=== PATIENT | female | born 1950 | race Caucasian/White ===

== ENCOUNTER → 2017-09-06 | Outpatient (CLI) | payer MEDICARE ==
[~2017-09-06] MED LIST: FENOFIBRATE145 MG PO; GLIMEPIRIDE2 MG PO; GLYBURIDE PO; HYDROCHLOROTHIA25 MG PO; IRBESARTAN150 MG PO; JANUVIA100 MG PO; LETROZOLE2.5 MG PO; METHIMAZOLE5 GM PO; MULTI VITAMIN; SIMVASTATIN; SIMVASTATIN20 MG PO; TRICOR; Z.0.BENICAR40 MG PO; Z.0.GLUCOPHAGE1000 M PO
--- NOTE | 2017-09-06 11:36 | Diagnostic Imaging Report ---
PROCEDURE: Frontal and lateral views of the chest. COMPARISON: Patients [facility], , CHEST SINGLE (NOT PORTABLE), 01/08/2017, 16:10. INDICATIONS: CHECK UP ON MALIGNANT NEOPLASM OF KIDNEY FINDINGS: Lines/tubes: None. Lungs: The lungs are well inflated and clear. There is no evidence of pneumonia or pulmonary edema. No pulmonary nodules. Pleura: There is no pleural effusion or pneumothorax. Heart and mediastinum: Cardiac silhouette is unremarkable. Pulmonary vasculature is normal. Tortuous aorta. Bones: No acute bony abnormality. No lytic or blastic lesions. IMPRESSION: 1. No acute cardiopulmonary disease. No evidence of metastatic disease in the thorax. Bashir Strauss M.D. Dictated by: Bashir Strauss M.D. on 09/06/2017 at 11:36 Electronically approved by: Bashir Strauss M.D. on 09/06/2017 at 11:36
--- NOTE | 2017-09-06 17:26 | Diagnostic Imaging Report ---
PROCEDURE:US RETROPERITONEAL ( KIDNEY ). COMPARISON:Patients [facility], CT, CT ABDOMEN \T\ PELVIS W/WO CONTRAST, 05/06/2009, 15:01. Patients [facility], CT, CT ABDOMEN/PELVIS WO, 06/10/2016, 15:06. INDICATIONS:MALIGNANT NEOPLASM OF LEFT KIDNEY TECHNIQUE: Crane-scale and color sonographic images of the bilateral kidneys and bladder where obtained in transverse and longitudinal planes. FINDINGS: RIGHT KIDNEY: 13.1 cm, cortex 1.5 cm Cysts: 4.6 x 4.1 x 4.2 cm partially exophytic cystic anechoic lesion in the mid lateral aspect, stable. Solid masses: None Stones: None Hydronephrosis: None Echogenicity: Mildly increased LEFT KIDNEY: 13.3 cm, cortex 1.8 cm Cysts: 3.5 x 2.1 x 2.4 cm anechoic lesion with echogenic focus, consistent with 2 mm calcification noted on prior CT, in the superomedial aspect (previously measured 2.6 x 2.5 x 2[address] dated 05/21/2016). Solid masses: None Stones: None Hydronephrosis: None Echogenicity: Increased Bladder: No focal lesions. Bilateral ureteral jets are identified. CONCLUSION: 1. Normal bilateral renal size. Bilateral increased renal cortical echogenicity, consistent with medical renal disease. No hydronephrosis or obstruction. 2. No sonographic evidence of residual or recurrent renal neoplasm. 3. Slight interval increase in size of mostly simple cystic lesion in the superomedial left kidney, which contains a peripheral stable 2 mm calcification since 2008. 4. Stable simple cyst in the mid lateral right kidney. Bashir Strauss M.D. Dictated by: Bashir Strauss M.D. on 09/06/2017 at 17:27 Electronically approved by: Bashir Strauss M.D. on 09/06/2017 at 17:27
== END ==
LOC: US 10:28
PROVIDERS: ATTEND Urology
DX: C64.2 Malignant neoplasm of left kidney, except renal pelvis (principal)
CPT/HCPCS: 71046; 76770

== ENCOUNTER 2018-06-29 03:47 | Emergency (ER) | payer MEDICARE, OTHER ==
[~2018-06-29] VITALS: Ht 172.7 cm; Wt 88.9 kg
--- OUTSIDE RECORDS SUMMARY | 2018-06-29 03:50 | XMS REPORT | Continuity of Care Document ---
Author Author [facility] Organization [facility] Address Unknown Phone Unavailable Care Team Providers Care Senior Infrastructure Architect Name Role Phone MD Zelda, Abundio HULL Unavailable Insurance Providers Payer name Policy type / Coverage type Policy ID Covered republican ID Policy Tucker UNITED HEALTHCARE - CHOICE PLUS (POS) [place] UNITED HEALTHCARE - CHO[place] PLUS (POS) UNITED HEALTHCARE - CHOICE PLUS (POS) UNITED HEALTHCARE - CHOICE PLUS (POS) UNITED HEALTHCARE - CHOICE PLUS (POS) UNITED HEALTHCARE - CHOICE PLUS (POS) Encounters Encounter Performer Location Date Office Visit Abundio Ndiaye MD [facility] 350 Nov 26, 2013 Problems Problem Effective Dates Problem Status DIABETES - TYPE II Active HYPERCHOLESTEROLEMIA Active HYPERTENSION - BENIGN ESSENTIAL Active HYPOTHYROIDISM Active BREAST CANCER November 15, 2013 Active Procedures Date Description Comments November 15, 2013 smoking status never smoker Nov 26, 2013 smoking status Never smoker Medications Medication Instructions Start Date Status BENICAR HCT TABS November 15, 2013 Active METFORMIN HCL 1000 MG TABS November 15, 2013 Active SIMVASTATIN 10 MG TABS November 15, 2013 Active JANUVIA 100 MG TABS November 15, 2013 Active LEVOXYL 50 November 15, 2013 Active FENOFIBRATE 145 MG TABS November 15, 2013 Active GLIMEPIRIDE 2 MG TABS November 15, 2013 Active Vital Signs Date Description Test Result November 15, 2013 height E&M - 8302-2 HEIGHT 68 in November 15, 2013 weight E&M - 3141-9 WEIGHT 185 lb November 15, 2013 temperature E&M TEMPERATURE 98.4 deg f November 15, 2013 blood pressure, systolic - 8480-6 BP SYSTOLIC 134 mm Hg November 15, 2013 blood pressure, diastolic - 8462-4 BP DIASTOLIC 74 mm Hg Nov 26, 2013 weight E&M - 3141-9 WEIGHT 180 lb Nov 26, 2013 temperature E&M TEMPERATURE 98.7 deg f Nov 26, 2013 pulse rate E&M - 8867-4 PULSE RATE 101 /min Nov 26, 2013 blood pressure, systolic - 8480-6 BP SYSTOLIC 104 mm Hg Nov 26, 2013 blood pressure, diastolic - 8462-4 BP DIASTOLIC 70 mm Hg
--- OUTSIDE RECORDS SUMMARY | 2018-06-29 03:50 | XMS REPORT | Summary of Care ---
Author Author [place], Yoly Nunn Unknown Address Unknown Phone Unavailable Care Team Providers Care Graduate Studies Dean Name Role Phone KEV Prince, KAYLA Unavailable Unavailable CLIVE Mckeon, PERLA Unavailable Unavailable LINDA Mckeon, RAMÍREZ Unavailable Unavailable CLIVE MCCLAIN [place], PERLA FLANAGAN Unavailable Unavailable Unavailable Unavailable Functional Status Name Dates Details Functional status health issues are not documented Status: Name Dates Details Cognitive status health issues are not documented Status: Problems Name Dates Details Anemia (285.9, D64.9) Status: Active Need for varicella vaccine (V05.4, Z23) Status: Active 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, 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 Breast cancer (174.9, C50.919) Status: Active Rectal bleeding (569.3, K62.5) Status: Active Paronychia of toe (681.11, L03.039) Status: Active Hypothyroidism (244.9, E03.9) Status: Active Thyroiditis (245.9, E06.9) Status: Active Pharyngitis (462, J02.9) Status: Active Ds DNA antibody positive (795.79, R76.8) Status: Active Acute pharyngitis (462, J02.9) Status: Active Acute tracheobronchitis (466.0, J20.9) Status: Active Arthralgia of both knees (719.46, M25.561) Status: Active Arthralgia of left hand (719.44, M25.542) Status: Active Arthralgia of right hand (719.44, M25.541) Status: Active Positive GLADYS (antinuclear antibody) (795.79, R76.8) Status: Active Use of anastrozole (Arimidex) (V07.52, Z79.811) Status: Active Primary osteoarthritis of both hands (715.14, M19.041) Status: Active Synovial cyst of right popliteal space (727.51, M71.21) Status: Active Fever (780.60, R50.9) Status: Active Persistent cough (786.2, R05) Status: Active Tracheobronchitis (490, J40) Status: Active BMI 30.0-30.9,adult (V85.30, Z68.30) Status: Active Colon cancer screening (V76.51, Z12.11) Status: Active 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, 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) Status: Active Hospital discharge follow-up (V67.59, Z09) Status: Active Elevated lipase (790.5, R74.8) Status: Active Abdominal pain, acute, right lower quadrant (789.03, R10.31) Status: Active Right-sided back pain (724.5, M54.9) Status: Active Hyperproteinemia (273.8, E88.09) Status: Active Hyperglobulinemia (273.8, R77.1) Status: Active Pain of right sacroiliac joint (724.6, M53.3) Status: Active Myofascial pain syndrome (729.1, M79.18) Status: Active Occipital neuritis (723.8, M54.81) Status: Active Lower back pain (724.2, M54.5) Status: Active Estrogen receptor positive (V86.0, Z17.0) Status: Active Allergic rhinosinusitis (477.9, J30.9) Status: Active Acute URI (465.9, J06.9) Status: Active Acute UTI (599.0, N39.0) Status: Active Encounter for mini-mental status examination Status: Active Essential hypertension, benign (401.1, I10) Status: Active Type 2 diabetes mellitus (250.00, E11.9) Status: Active 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, 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) Status: Active New onset of headaches after age 50 (784.0, R51) Status: Active Episodic lightheadedness (780.4, R42) Status: Active Diabetes mellitus, without long-term current use of insulin (250.00, E11.9) Status: Active Influenza vaccine needed (V04.81, Z23) Status: Active Diabetes mellitus with proteinuria (250.40, E11.29) Status: Active Essential (primary) hypertension (401.9, I10) Status: Active Encounter for diabetic foot exam (250.00, E11.9) Status: Active Type 2 diabetes mellitus with proteinuria (250.40, E11.29) Status: Active Mixed hyperlipidemia (272.2, E78.2) Status: Active Encounter for monitoring statin therapy (V58.83, Z51.81) Status: Active CKD (chronic kidney disease), stage III (585.3, N18.3) Status: Active Mixed hyperlipidemia (272.2, E78.2) Status: Active On potassium wasting diuretic therapy (V58.69, Z79.899) Status: Active Need for vaccination with 13-polyvalent pneumococcal conjugate vaccine (V03.82, Z23) Status: Active Depression screening (V79.0, Z13.31) Status: Active At low risk for fall (V49.89, Z91.81) Status: Active History of left breast cancer (V10.3, Z85.3) Status: Active At low risk for fall (V49.89, Z91.81) Status: Active Diverticulosis of colon (562.10, K57.30) Status: Active History of renal cell carcinoma (V10.52, Z85.528) Status: Active Hyperthyroidism (242.90, E05.90) Status: Active Diverticulitis, colon (562.11, K57.32) Status: Active Lower abdominal pain (789.09, R10.30) Status: Active Diarrhea (787.91, R19.7) Status: Active Medications Name Dates Details Fenofibrate 145 MG Oral Tablet TAKE 1 TABLET EVERY DAY Quantity: 90 CLIVE Sue.SHANNON De LunaNDA * Start : 14-Jun-2018 Active MetFORMIN HCl - 1000 MG Oral Tablet Take 1 tablet by mouth twice a day * Quantity: 180 Refills: 0 CLIVE Sue.PERLA De Luna * Start : 14-Jun-2018 Active Simvastatin 10 MG Oral Tablet TAKE 1 TABLET BY MOUTH ONCE DAILY * Quantity: 90 Refills: 1 CLIVE Sue.Annamarie, PERLA * Start : 21-May-2013 Active Glimepiride 2 MG Oral Tablet TAKE 1 TABLET IN THE MORNING AND 1 AND 1/2 IN THE EVENING * Quantity: 225 Refills: 1 CLIVE Sue.PERLA De Luna * Start : 27-Dec-2013 Active Januvia 100 MG Oral Tablet TAKE 1 TABLET EVERY DAY * Quantity: 90 Refills: 0 CLIVE Sue.PERLA De Luna * Start : 14-Jun-2018 Active Irbesartan-Hydrochlorothiazide 300-12.5 MG Oral Tablet TAKE 1 TABLET EVERY DAY * Quantity: 90 Refills: 0 CLIVE Sue.PERLA De Luna * Start : 14-Jun-2018 Active Caltrate 600+D Plus TABS TAKE 1 TABLET DAILY * Refills: 0 Active Ferrous Sulfate 325 (65 Fe) MG Oral Tablet TAKE 1 TABLET TWICE DAILY. * Refills: 0 Active Vitamin C 500 MG Oral Tablet Take 1/2 tablet twice a day * Refills: 0 Active MethIMAzole 5 MG Oral Tablet Take 1 tab PO daily * Quantity: 90 Refills: 0 LINDA RAMÍREZ Mckeon * Start : 30-Jan-2015 Active Letrozole 2.5 MG Oral Tablet TAKE 1 TABLET DAILY, started taking 10/03/2015 * Refills: 0 Active Centrum TABS * Refills: 0 Active Gabapentin 100 MG Oral Capsule TAKE 1-3 CAPSULES THREE TIMES DAILY * Quantity: 270 Refills: 0 PERLA DUFFY M.D. * Start : 13-Apr-2018 Active Accu-Chek FastClix Lancets USE TO CHECK BLOOD SUGAR ONCE DAILY * Quantity: 1 Refills: 0 PERLA DUFFY M.D. * Start : 26-Aug-2017 Active 102 Unit Box Accu-Chek SmartView In Vitro Strip CHECK GLUCOSE EVERY MORNING DIRECTED * Quantity: 100 Refills: 0 PERLA DUFFY M.D. * Start : 31-Mar-2018 Active Ciprofloxacin HCl - 500 MG Oral Tablet TAKE 1 TABLET EVERY 12 HOURS DAILY. * Quantity: 20 Refills: 0 KEV N.P., KAYLA * Start : 20-Apr-2018 Active Colestipol HCl - 1 GM Oral Tablet TAKE 1 TABLET BY MOUTH TWICE DAILY WITH FOOD NEEDED FOR DIARRHEA * Quantity: 180 Refills: 0 KEV N.P., KAYLA * Start : 21-Apr-2018 Active Allergies and Adverse Reactions Name Dates Details Penicillins (Allergy) Status: Denied Past Medical History Name Dates Details Influenza vaccine needed (V04.81, Z23) Status: Active Need for varicella vaccine (V05.4, Z23) Status: Active H/O renal cell carcinoma (V10.52, Z85.528) Status: Resolved History of Diabetes mellitus (250.00, E11.9) Status: Resolved History of diarrhea (V12.79, Z87.898) Status: Resolved History of Diverticula of intestine (562.10, K57.30) Status: Resolved History of essential hypertension (V12.59, Z86.79) Status: Resolved History of hiatal hernia (V12.79, Z87.19) Status: Resolved History of hyperlipidemia (V12.29, Z86.39) Status: Resolved History of hypothyroidism (V12.29, Z86.39) Status: Resolved History of Kidney Cancer (V10.52) Status: Resolved History of Tracheobronchitis (490, J40) Status: Resolved Procedures Procedure Dates Details [QLH] CBC (INCLUDES DIFF/PLT) Date: 20-Apr-2018 [QL] SED RATE BY MODIFIED WESTERGREN Date: 20-Apr-2018 [QL] CMP W/EGFR Date: 20-Apr-2018 History of Appendectomy Completed History of Tubal Ligation Completed History of Hysterectomy Completed History of Cholecystectomy Completed History of Kidney Surgery Completed History of Mastectomy Left Breast Completed Immunization Name Dates Details Pneumococcal polysaccharide vaccine, 23 valent on: 14-Apr-2009 Tdap on: 28-Oct-2009 Hepatitis A on: 28-Oct-2009 Hepatitis A on: 01-Sep-2011 Influenza on: 29-Feb-2012 Fluzone INJ Lot #: [id number] on: 23-Apr-2013 Zoster (Zostavax) Lot #: [id number] on: 23-Apr-2013 Pneumococcal polysaccharide vaccine, 23 valent Lot #: [id number] on: 25-Mar-2015 Influenza Lot #: [id number] on: 25-Mar-2015 Fluzone Quadrivalent 0.5 ML Intramuscular Suspension on: 20-Apr-2016 Fluzone High-Dose 0.5 ML Intramuscular Suspension Prefilled Syringe Lot #: [id number] on: 11-Mar-2017 Prevnar 13 Intramuscular Suspension Lot #: [id number] on: 13-Oct-2017 Fluzone High-Dose 0.5 ML Intramuscular Suspension Prefilled Syringe Lot #: [id number] on: 14-Mar-2018 Family History Name Dates Details Family history of Diabetes Mellitus (V18.0) Status: Active Family history of Hypertension (V17.49) Status: Active Family history of arthritis (V17.7, Z82.61) Status: Active Family history of osteoporosis (V17.81, Z82.62) Status: Active Name Dates Details Family history of Cancer Status: Active Family history of Diabetes Mellitus (V18.0) Status: Active Family history of Hypertension (V17.49) Status: Active Social History Name Dates Details - Status: Name Dates Details Former smoker Vital Signs Date Test Result Details No Known Vitals to report Results Date Description Value Details Results not documented Plan of Care Name Dates Details Planned Observations Planned Goals not documented Planned Encounters Appointment; RAMÍREZ MCKEON M.D. On: 22-Jun-2018 8:00 Interventions Provided Medication Changes* Fenofibrate 145 MG Oral Tablet - Renew * Irbesartan-Hydrochlorothiazide 300-12.5 MG Oral Tablet - Renew * Januvia 100 MG Oral Tablet - Renew * MetFORMIN HCl - 1000 MG Oral Tablet - Renew Instructions Name Dates Details Instructions not documented Encounters Appointment; PERLA DUFFY M.D. Encounter Diagnosis: Problem not documented On: 17-Jun-2016 10:45 Appointment; PERLA DUFFY M.D. Encounter Diagnosis: Problem not documented On: 02-Sep-2016 14:15 Appointment; RAMÍREZ MCKEON M.D. Encounter Diagnosis: Problem not documented On: 01-Nov-2016 11:30 Appointment; PERLA DUFFY M.D. Encounter Diagnosis: Problem not documented On: 19-Nov-2016 15:15 Appointment; ANDRES ROLLE M.D. Encounter Diagnosis: Problem not documented On: 19-Jan-2017 8:45 Appointment; PERLA DUFFY M.D. Encounter Diagnosis: Problem not documented On: 11-Mar-2017 13:45 Appointment; RAMÍREZ MCKEON M.D. Encounter Diagnosis: Problem not documented On: 07-Apr-2017 11:30 Appointment; RAMÍREZ MCKEON M.D. Encounter Diagnosis: Problem not documented On: 15-Jun-2017 9:30 Appointment; RAMÍREZ MCKEON M.D. Encounter Diagnosis: Problem not documented On: 14-Jul-2017 8:00 Appointment; PERLA DUFFY M.D. Encounter Diagnosis: Problem not documented On: 13-Oct-2017 14:45 Appointment; RAMÍREZ MCKEON M.D. Encounter Diagnosis: Problem not documented On: 31-Oct-2017 15:30 Appointment; RAMÍREZ MCKEON M.D. Encounter Diagnosis: Problem not documented On: 14-Mar-2018 8:00 Appointment; KAYLA ANGULO NP Encounter Diagnosis: Problem not documented On: 20-Apr-2018 12:30
--- OUTSIDE RECORDS SUMMARY | 2018-06-29 03:50 | XMS REPORT | Continuity of Care Document ---
Author Author [facility] Organization [facility] Address Unknown Phone Unavailable Care Team Providers Care Home Health Clinical Liaison Name Role Phone MD Zelda, Abundio HULL Unavailable Insurance Providers Payer name Policy type / Coverage type Policy ID Covered constitution party ID Policy Tucker UNITED HEALTHCARE - CHOICE PLUS [place]POS[place] UNITED HEALTHCARE - CHOICE PLUS (POS) UNITED HEALTHCARE - CHOICE PLUS (POS) UNITED HEALTHCARE - CHOICE PLUS (POS) UNITED HEALTHCARE - CHOICE PLUS (POS) Encounters Encounter Performer Location Date Lab Report Abundio Ndiaye MD [facility] [place] Nov 21, 2013 Problems Problem Effective Dates Problem Status DIABETES - TYPE II Active HYPERCHOLESTEROLEMIA Active HYPERTENSION - BENIGN ESSENTIAL Active HYPOTHYROIDISM Active BREAST CANCER November 15, 2013 Active Procedures Date Description Comments November 15, 2013 smoking status never smoker Medications Medication Instructions Start Date Status [...]
--- OUTSIDE RECORDS SUMMARY | 2018-06-29 03:50 | XMS REPORT | Continuity of Care Document ---
Author Author [facility] Organization [facility] Address Unknown Phone Unavailable Care Team Providers Care Nutter Up Name Role Phone MD Zelda, Abundio HULL Unavailable Insurance Providers Payer name Policy type / Coverage type Policy ID Covered alliance party ID Policy Tucker UNITED HEALTHCARE - [...] Location Date Office Visit Abundio Ndiaye MD [facility] General Surgery 350 Jan 09, 2014 Problems Problem Effective Dates Problem Status DIABETES - TYPE II Active HYPERCHOLESTEROLEMIA Active HYPERTENSION - BENIGN ESSENTIAL Active HYPOTHYROIDISM Active BREAST CANCER November 15, 2013 Active Procedures Date Description Comments November 15, 2013 smoking status never smoker Nov 26, 2013 smoking status Never smoker Nov 29, 2013 smoking status Never smoker Jan 09, 2014 smoking status Never smoker Medications Medication Instructions [...] Test Result November 15, 2013 height E&M HEIGHT 68 in November 15, 2013 weight E&M WEIGHT 185 lb November 15, 2013 temperature E&M TEMPERATURE 98.4 deg f November 15, 2013 blood pressure, systolic BP SYSTOLIC 134 mm Hg November 15, 2013 blood pressure, diastolic BP DIASTOLIC 74 mm Hg Nov 26, 2013 weight E&M WEIGHT 180 lb Nov 26, 2013 temperature E&M TEMPERATURE 98.7 deg f Nov 26, 2013 pulse rate E&M PULSE RATE 101 /min Nov 26, 2013 blood pressure, systolic BP SYSTOLIC 104 mm Hg Nov 26, 2013 blood pressure, diastolic BP DIASTOLIC 70 mm Hg Nov 29, 2013 weight E&M WEIGHT 182 lb Nov 29, 2013 temperature E&M TEMPERATURE 98.7 deg f Nov 29, 2013 pulse rate E&M PULSE RATE 89 /min Nov 29, 2013 blood pressure, systolic BP SYSTOLIC 112 mm Hg Nov 29, 2013 blood pressure, diastolic BP DIASTOLIC 74 mm Hg Jan 09, 2014 weight E&M WEIGHT 181 lb Jan 09, 2014 temperature E&M TEMPERATURE 98.1 deg f Jan 09, 2014 pulse rate E&M PULSE RATE 76 /min Jan 09, 2014 blood pressure, systolic BP SYSTOLIC 108 mm Hg Jan 09, 2014 blood pressure, diastolic BP DIASTOLIC 67 mm Hg
--- OUTSIDE RECORDS SUMMARY | 2018-06-29 03:50 | XMS REPORT | Continuity of Care Document ---
Author Author [facility] Organization [facility] Address Unknown Phone Unavailable Care Team Providers Care Supervisor Briar Shop Name Role Phone MD Zelda, Abundio HULL Unavailable Insurance Providers Payer name Policy type / Coverage type Policy ID Covered democrat ID Policy Tucker UNITED HEALTHCARE - CHOICE PLUS [place]POS) [place] UNITED HEALTHCARE - CHOICE [place] (POS) UNITED HEALTHCARE - CHOICE PLUS (POS) UNITED HEALTHCARE - CHOICE PLUS (POS) UNITED HEALTHCARE - CHOICE PLUS (POS) Encounters Encounter Performer Location Date Lab Report Abundio Ndiaye MD [facility] - [place] Nov 21, 2013 Problems Problem Effective Dates [...]
--- OUTSIDE RECORDS SUMMARY | 2018-06-29 03:50 | XMS REPORT | Continuity of Care Document ---
Author Author [facility] Organization [facility] Address Unknown Phone Unavailable Care Team Providers Care Sword Swallower Name Role Phone MD Zelda, Abundio HULL [...] Location Date Office Visit Abundio Ndiaye MD [facility] General Surgery 350 Nov 29, 2013 Problems Problem Effective Dates Problem Status DIABETES - TYPE II Active HYPERCHOLESTEROLEMIA Active HYPERTENSION - BENIGN ESSENTIAL Active HYPOTHYROIDISM Active BREAST CANCER November 15, 2013 Active Procedures Date Description Comments November 15, 2013 smoking status never smoker Nov 26, 2013 smoking status Never smoker Nov 29, 2013 smoking status Never smoker Medications Medication [...]
--- OUTSIDE RECORDS SUMMARY | 2018-06-29 03:50 | XMS REPORT | Continuity of Care Document ---
Author Author [facility] Organization [facility] Address Unknown Phone Unavailable Care Team Providers Care Motion Picture Equipment Supervisor Name Role Phone MD Zelda, Abundio HULL [...] Location Date Lab Report Abundio Ndiaye MD [facility] Dec 16, 2013 Problems Problem Effective Dates Problem Status [...]
--- OUTSIDE RECORDS SUMMARY | 2018-06-29 03:50 | XMS REPORT ---
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 Allergies, Adverse Reactions, Alerts This patient has no known allergies or adverse reactions. Medications This patient has no known medications. Results Test Description Test Time Test Comments Text Results Atomic Results Result Comments CHEST 2 VIEWS [place] [address] Patient Name: DMITRIY ENRIQUEZ MR #: [id number] : 1950 Age/Sex: 67/F Req #: [id number] Adm Physician: Ordered by: YOSELYN ARTEAGA MD Report #: [id number] Location: US Room/Bed: Procedure: [id number] DX/CHEST 2 VIEWS Exam Date: 09/06/17 Exam Time: 1020 REPORT STATUS: Signed PROCEDURE: Frontal and lateral views of the chest. COMPARISON: [facility], , CHEST SINGLE (NOT PORTABLE), 01/08/2017, 16:10. INDICATIONS: CHECK UP ON MALIGNANT NEOPLASM OF KIDNEY FINDINGS: Lines/tubes: None. Lungs: The lungs are well inflated and clear. There is no evidence of pneumonia or pulmonary edema. No pulmonary nodules. Pleura: There is no pleural effusion or pneumothorax. Heart and mediastinum: Cardiac silhouette is unremarkable. Pulmonary vasculature is normal. Tortuous aorta. Bones: No acute bony abnormality. No lytic or blastic lesions. IMPRESSION: 1. No acute cardiopulmonary disease. No evidence of metastatic disease in the thorax. Arcelia Strauss M.D. Dictated by: Arcelia Strauss M.D. on 09/06/2017 at 11:36 Electronically approved by: Arcelia Strauss M.D. on 09/06/2017 at 11:36 Dictated By: ARCELIA STRAUSS MD 1136 Transcribed By: ANNA on 09/06/17 1136 COPY TO: YOSELYN ARTEAGA MD US RENAL RETROPERITONEAL COMP [place] [address] Patient Name: DMITRIY ENRIQUEZ MR #: [id number] : 1950 Age/Sex: 67/F Req #: [id number] Adm Physician: Ordered by: YOSELYN ARTEAGA MD Report #: [id number] Location: Room/Bed: Procedure: [id number] US/US RENAL RETROPERITONEAL COMP Exam Date: 09/06/17 Exam Time: 1102 REPORT STATUS: Signed PROCEDURE: US RETROPERITONEAL ( KIDNEY ). COMPARISON: [facility], CT, CT ABDOMEN T PELVIS W/WO CONTRAST, 05/06/2009, 15:01. [facility], CT, CT ABDOMEN/PELVIS WO, 06/10/2016, 15:06. INDICATIONS: MALIGNANT NEOPLASM OF LEFT KIDNEY TECHNIQUE: Crane-scale and color sonographic images of the bilateral kidneys and bladder where obtained in transverse and longitudinal planes. FINDINGS: RIGHT KIDNEY: 13.1 cm, cortex 1.5 cm Cysts: 4.6 x 4.1 x 4.2 cm partially exophytic cystic anechoic lesion in the mid lateral aspect, stable. Solid masses: None Stones: None Hydronephrosis: None Echogenicity: Mildly increased LEFT KIDNEY: 13.3 cm, cortex 1.8 cm Cysts: 3.5 x 2.1 x 2.4 cm anechoic lesion with echogenic focus, consistent with 2 mm calcification noted on prior CT, in the superomedial aspect (previously measured 2.6 x 2.5 x 2[address] dated 05/21/2016). Solid masses: None Stones: None Hydronephrosis: None Echogenicity: Increased Bladder: No focal lesions. Bilateral ureteral jets are identified. CONCLUSION: 1. Normal bilateral renal size. Bilateral increased renal cortical echogenicity, consistent with medical renal disease. No hydronephrosis or obstruction. 2. No sonographic evidence of residual or recurrent renal neoplasm. 3. Slight interval increase in size of mostly simple cystic lesion in the superomedial left kidney, which contains a peripheral stable 2 mm calcification since 2008. 4. Stable simple cyst in the mid lateral right kidney. Arcelia Strauss M.D. Dictated by: Arcelia Strauss M.D. on 09/06/2017 at 17:27 Electronically approved by: Arcelia Strauss M.D. on 09/06/2017 at 17:27 Dictated By: ARCELIA STRAUSS MD 26 Transcribed By: ANNA on 09/06/171726 COPY TO: YOSELYN ARTEAGA MD
--- OUTSIDE RECORDS SUMMARY | 2018-06-29 03:50 | XMS REPORT | Continuity of Care Document ---
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
[2018-06-29 04:28] LABS: BASOPHILS # (AUTO) 0.1 (0.0-0.1); BASOPHILS % 0.5 % (0.0-1.0); EOSINOPHILS # (AUTO) 0.3 (0.0-0.4); EOSINOPHILS % 2.7 % (0.0-6.0); HEMATOCRIT 32.4 % (34.2-44.1); HEMOGLOBIN 11.4 g/dL (12.0-16.0); LYMPHOCYTES % 32.3 % (18.0-39.1); MEAN CORPUSCULAR HEMOGLOBIN 31.8 pg (28-32); MEAN CORPUSCULAR HGB CONC 35.2 g/dL (31-35); MEAN CORPUSCULAR VOLUME 90.5 fL (81-99); MONOCYTES # (AUTO) 0.8 (0.2-0.8); MONOCYTES % 8.4 % (4.4-11.3); NEUTROPHILS # (AUTO) 5.1 (2.1-6.9); NEUTROPHILS % 55.9 % (38.7-80.0); PLATELET COUNT 227 x10e3/uL (140-360); RED BLOOD COUNT 3.58 x10e6/uL (3.6-5.1); RED CELL DISTRIBUTION WIDTH 12.4 % (11.7-14.4)
[2018-06-29 04:32] LABS: INFLUENZAE A&B ANTIGEN (RAPID) NEGATIVE (NEGATIVE); STREPTOCOCCUS GRP A ANTIGEN NEGATIVE (NEGATIVE)
[2018-06-29 04:45] LABS: ALBUMIN 3.7 g/dL (3.5-5.0); ALBUMIN/GLOBULIN RATIO 0.9 (0.8-2.0); ANION GAP 16.6 mmol/L (8-16); CALCIUM 9.8 mg/dL (8.4-10.2); CREATININE, SERUM 1.13 mg/dL (0.57-1.11); POTASSIUM 3.6 mmol/L (3.5-5.1)
--- NOTE | 2018-06-29 04:54 | Diagnostic Imaging Report ---
CHEST 2 VIEWS, Technique: CHEST 2 VIEWS Comparison: 09/06/2017 Clinical history: Cough, chest pain DISCUSSION: Mild right basilar opacity, which may be within the right middle lobe. Otherwise stable heart, mediastinum, lungs, and pleural spaces. Prominent thoracic aorta, unchanged. IMPRESSION: Right lung pneumonia. Recommend 6-8 week follow-up to document resolution. Signed by: Dr Nanette Avilez MD on 06/29/2018 4:50 AM
[2018-06-29] MEDS ORDERED: CEFTRIAXONE SOD 1 GM/NS 50 ML 50 ML IV ONE (05:00)
[2018-06-29 05:17] VITALS: BP 143/71
== END 2018-06-29 05:37 | disposition home or self-care (01) ==
LOC: ER 03:47
DX: R50.9 Fever, unspecified (principal); R05 Cough; J15.9 Unspecified bacterial pneumonia; I10 Essential (primary) hypertension; E11.9 Type 2 diabetes mellitus without complications; E03.9 Hypothyroidism, unspecified; E78.5 Hyperlipidemia, unspecified; Z85.3 Personal history of malignant neoplasm of breast; Z85.528 Personal history of other malignant neoplasm of kidney
CPT/HCPCS: 36415; 71046; 80053; 83518; 85025; 87070; 87400; 99283; J0696

== ENCOUNTER → 2018-11-20 | Outpatient (CLI) | payer MEDICARE ==
--- NOTE | 2018-11-20 13:28 | Diagnostic Imaging Report ---
EXAMINATION: CHEST 2 VIEWS INDICATION: Left renal malignancy. COMPARISON: Chest radiograph 06/29/2018. FINDINGS: TUBES and LINES: None. LUNGS: Lungs are well inflated. Interval resolution of patchy opacity in the right lower lung. There is no evidence of pneumonia or pulmonary edema. PLEURA: No pleural effusion or pneumothorax. HEART AND MEDIASTINUM: The cardiomediastinal silhouette is unremarkable. BONES AND SOFT TISSUES: No acute osseous abnormality. UPPER ABDOMEN: No free air under the diaphragm. IMPRESSION: No acute radiographic abnormality. Interval resolution of patchy opacity in the right lower lung. Signed by: Dr. Memo Barajas MD on 11/20/2018 1:25 PM
--- NOTE | 2018-11-20 13:39 | Diagnostic Imaging Report ---
EXAM: Renal Ultrasound INDICATION: Left renal malignancy. COMPARISON: Renal ultrasound 09/06/2017. TECHNIQUE: Transverse and longitudinal images of the kidneys and bladder were obtained. FINDINGS: Right Kidney: Length: Measures 13.3 x 5.9 x 6.0 cm Appearance: Slightly increased cortical echogenicity. Collecting system: No hydronephrosis Stones: None Cyst/Mass: No evidence of solid mass. There is a partially exophytic simple appearing anechoic cyst in the midpole, measuring up to 4.6 x 3.9 x 4.0 cm, previously 4.6 x 4.1 x 4.2 cm. Left Kidney: Length: Measures 12.8 x 5.3 x 4.9 cm Appearance: Slightly increased cortical echogenicity. Collecting system: No hydronephrosis Stones: None Cyst/Mass: No evidence of solid mass. Similar appearance of anechoic cyst in the midpole with associated peripheral echogenicity, consistent with calcification. The cyst measures up to 2.6 x 2.1 x 2.7 cm, previously 3.5 x 2.1 x 2.4 cm. Bladder: Unremarkable in appearance. Bilateral ureteral jets are present. IMPRESSION: No sonographic evidence of solid renal mass. Similar appearance of simple right mid pole cyst and minimally complex left mid pole cyst. Mildly increased bilateral renal cortical echogenicity, consistent with medical renal disease. Signed by: Dr. Memo Barajas MD on 11/20/2018 1:36 PM
== END ==
LOC: US 11:57
PROVIDERS: ATTEND Urology
DX: C64.2 Malignant neoplasm of left kidney, except renal pelvis (principal)
CPT/HCPCS: 71046; 76770

== ENCOUNTER → 2019-06-07 | Outpatient (CLI) | payer MEDICARE ==
--- NOTE | 2019-06-07 08:22 | Diagnostic Imaging Report ---
EXAMINATION: PA and lateral views of the chest. COMPARISON: 11/20/2018 CLINICAL HISTORY: Left renal malignancy DISCUSSION: The lungs are well-inflated and without focal consolidation, pleural effusion, or pneumothorax. No gross mass lesion or suspicious nodule. Stable cardiomediastinal contour with tortuous thoracic aorta. Normal heart size without overt pulmonary edema. No acute osseous abnormality. Left upper abdominal surgical clips partially visualized related to prior left nephrectomy. IMPRESSION: No acute cardiopulmonary abnormalities. Stable appearance of the chest relative to 11/20/2018. Signed by: Dr. Ean Hearn M.D. on 06/07/2019 8:19 AM
--- NOTE | 2019-06-07 08:51 | Diagnostic Imaging Report ---
EXAM: Renal Ultrasound INDICATION: ^[id number] ^[id number] ^MAYELA NEOP OF LT KIDNEY COMPARISON: Renal ultrasound 11/20/2018 TECHNIQUE: Transverse and longitudinal images of the kidneys and bladder were obtained. FINDINGS: Right Kidney: Length: 13.8 cm Appearance: Increased echogenicity. Collecting system: No hydronephrosis Stones: None Cyst/Mass: Mid pole simple cyst measures 4.5 x 4.5 x 4.5 cm. Left Kidney: Length: 11.6 cm Appearance: Increased echogenicity. Collecting system: Minimal hydronephrosis Stones: None Cyst/Mass: Upper pole simple cyst measures 2.9 x 2.4 x 2.9 cm. Bladder: No mass or calculi. Bilateral ureteral jets visualized. Prevoid volume estimate of 89 cc. IMPRESSION: Minimal left hydronephrosis. No solid mass lesions or renal calculi. Stable bilateral renal cysts as above. Increased bilateral renal parenchymal echogenicity, compatible with medical renal disease. Signed by: Yessy Campa MD on 06/07/2019 8:48 AM
== END ==
LOC: US 06:54
PROVIDERS: ATTEND Urology
DX: C64.2 Malignant neoplasm of left kidney, except renal pelvis (principal)
CPT/HCPCS: 71046; 76770

== ENCOUNTER → 2019-12-31 | Outpatient (CLI) | payer MEDICARE ==
--- NOTE | 2019-12-31 08:53 | Diagnostic Imaging Report ---
EXAMINATION: CHEST 2 VIEWS INDICATION: Renal malignancy COMPARISON: None FINDINGS: LINES/TUBES:None LUNGS:The lungs are well-inflated. Mild biapical pleural parenchymal thickening/scarring. No focal consolidation or pulmonary edema. PLEURA:No pleural effusion or pneumothorax. MEDIASTINUM:The cardiomediastinal silhouette appears normal in size and shape. BONES/SOFT TISSUES:No acute osseous injury. ABDOMEN:No free air under the diaphragm. IMPRESSION: No focal pneumonia or pulmonary edema. No radiographically apparent pulmonary nodules. Signed by: Yessy Campa MD on 12/31/2019 8:50 AM
--- NOTE | 2019-12-31 08:58 | Diagnostic Imaging Report ---
EXAM: Renal Ultrasound INDICATION: ^[id number] ^[id number] ^MALIG NEOP OF LT KIDNEY COMPARISON: Renal ultrasound 06/07/2019 TECHNIQUE: Transverse and longitudinal images of the kidneys and bladder were obtained. FINDINGS: Right Kidney: Length: 13.4 cm Appearance: Normal echogenicity. Collecting system: No hydronephrosis Stones: None Cyst/Mass: Dominant right lateral midpole anechoic simple cyst measures 4.6 x 4.6 x 5.0 cm. Left Kidney: Length: 13.0 cm Appearance: Normal echogenicity. Collecting system: No hydronephrosis Stones: None Cyst/Mass: Left mid pole anechoic simple cyst measures 2.3 x 1.8 x 2.7 cm. Bladder: Decompressed bladder. IMPRESSION: No hydronephrosis or renal calculi. Bilateral renal cysts, not significantly changed compared to 06/07/2019. Signed by: Yessy Campa MD on 12/31/2019 8:55 AM
== END ==
LOC: US 07:18
PROVIDERS: ATTEND Urology
DX: C64.2 Malignant neoplasm of left kidney, except renal pelvis (principal)
CPT/HCPCS: 71046; 76770

== ENCOUNTER → 2020-06-30 | Outpatient (CLI) | payer MEDICARE | LOC: US 09:19 | PROVIDERS: ATTEND Urology | DX: C64.2 Malignant neoplasm of left kidney, except renal pelvis (principal) | CPT/HCPCS: 71046; 76770 ==

== ENCOUNTER → 2021-06-18 | Outpatient (CLI) | payer MEDICARE | LOC: US 07:56 | PROVIDERS: ATTEND Urology | DX: C64.2 Malignant neoplasm of left kidney, except renal pelvis (principal) | CPT/HCPCS: 71046; 76770 ==

== ENCOUNTER → 2021-11-05 | Outpatient (CLI) | payer MEDICARE | LOC: US 06:35 | PROVIDERS: ATTEND Urology | DX: C64.2 Malignant neoplasm of left kidney, except renal pelvis (principal) | CPT/HCPCS: 71046; 76770 ==

== ENCOUNTER → 2021-12-03 | Outpatient (CLI) | payer MEDICARE ==
[~2021-12-03] MED LIST changes: +IOPAMIDOL 370 MG/ML 100 ML INFUS..BTL INJ ONE
== END ==
LOC: CT 06:44
PROVIDERS: ATTEND Urology
DX: N20.0 Calculus of kidney (principal)
CPT/HCPCS: 74176; Q9967

== ENCOUNTER 2021-12-13 13:24 | Inpatient (IN) | payer MEDICARE ==
[~2021-12-13] VITALS: Ht 172.7 cm; Wt 85.8 kg
[~2021-12-13 13:24] MED LIST changes: -IOPAMIDOL 370 MG/ML 100 ML INFUS..BTL INJ ONE; -MULTI VITAMIN; +MULTI VITAMIN PO
[2021-12-13 14:35] LABS: BASOPHILS # (AUTO) 0.1 (0.0-0.1); BASOPHILS % 0.3 % (0.0-1.0); EOSINOPHILS % 0.1 % (0.0-6.0); HEMOGLOBIN 11.9 g/dL (12.0-16.0); LYMPHOCYTES # (AUTO) 2.5 (1.0-3.2); LYMPHOCYTES % 14.1 % (18.0-39.1); MEAN CORPUSCULAR HEMOGLOBIN 32.4 pg (28-32); MEAN CORPUSCULAR HGB CONC 33.1 g/dL (31-35); MEAN CORPUSCULAR VOLUME 98.1 fL (81-99); MONOCYTES # (AUTO) 0.6 (0.2-0.8); MONOCYTES % 3.6 % (4.4-11.3); NEUTROPHILS # (AUTO) 14.5 (2.1-6.9); NEUTROPHILS % 81.6 % (38.7-80.0); PLATELET COUNT 278 x10e3/uL (140-360); RED BLOOD COUNT 3.67 x10e6/uL (3.6-5.1); RED CELL DISTRIBUTION WIDTH 12.1 % (11.7-14.4)
[2021-12-13 14:41] LABS: CLARITY,URINE SL CLOUDY (CLEAR); COLOR,URINE YELLOW (YELLOW); LEUKOCYTE ESTERASE ,URINE SMALL (NEGATIVE); NITRITE,URINE POSITIVE (NEGATIVE)
[2021-12-13 14:42] LABS: KETONES,URINE NEGATIVE (NEGATIVE); PROTEIN,URINE DIPSTICK 2+ (NEGATIVE); URINE UROBILINOGEN 0.2 mg/dL (0.2 - 1)
[2021-12-13 14:49] LABS: BACTERIA,URINE MANY /HPF; EPITHELIAL CELLS,URINE RARE /LPF; INR 0.97; PROTHROMBIN TIME 13.8 seconds (11.9-14.5); WBC,URINE (MAN) >50 /HPF (0-5)
[2021-12-13 14:50] LABS: PARTIAL THROMBOPLASTIN TIME 32.3 seconds (23.8-35.5)
[2021-12-13 14:56] LABS: ALBUMIN 4.1 g/dL (3.5-5.0); ALBUMIN/GLOBULIN RATIO 0.8 (0.8-2.0); ANION GAP 16.3 mmol/L (8-16); CALCIUM 9.7 mg/dL (8.4-10.2); CREATININE, SERUM 2.05 mg/dL (0.57-1.11); POTASSIUM 5.3 mmol/L (3.5-5.1)
[2021-12-13] MEDS ORDERED: SODIUM CHLORIDE 0.9% 1000ML 1,000 ML IV STA (16:03)
[2021-12-13] MEDS ORDERED: DEXTROSE 50% SYRINGE 50 ML IV PRN (16:45)
[2021-12-13] MEDS ORDERED: ONDANSETRON HCL INJ 2MG/ML 2ML 2 MG/ML VIAL IV PRN ×2 (16:45→20:15)
[2021-12-13] MEDS ORDERED: Morphine 2mg Syringe 2 MG/ML SYR IV PRN (16:45)
[2021-12-13 19:00] VITALS: BP 116/75
[2021-12-13] MEDS ORDERED: SIMVASTATIN5 MG PO (19:51)
[2021-12-13] MEDS ORDERED: TRADJENTA5 MG PO (19:51)
[2021-12-13] MEDS ORDERED: SYNTHROID25 MCG PO (19:51)
[2021-12-13] MEDS ORDERED: SPIRONOLACTONE25 MG PO (19:51)
[2021-12-13] MEDS ORDERED: IRBESARTAN300 MG PO (19:51)
[2021-12-13] MEDS ORDERED: METFORMIN HCL500 M1 PO (19:51)
[2021-12-13] MEDS ORDERED: GLIMEPIRIDE2 MG PO (19:53)
[2021-12-13] MEDS ORDERED: vitamin k2 PO (19:56)
[2021-12-13] MEDS ORDERED: METFORMIN HCL500 MG PO (19:56)
[2021-12-13] MEDS ORDERED: PROBIOTIC & AC1 EACH PO (19:56)
[2021-12-13 20:00] VITALS: BP 116/75
[2021-12-13] MEDS ORDERED: ACETAMINOPHEN 325 MG TAB PO PRN (20:15)
[2021-12-13] MEDS ORDERED: HYDRALAZINE HCL 20 MG/ML VIAL IV PRN (20:15)
[2021-12-13] MEDS ORDERED: POLYETHYLENE GLYCOL 3350 17 GM PACK PO PRN (20:15)
[2021-12-13] MEDS ORDERED: SOD POLYSTYRENE SULFONATE SUSP 15 GM/60 ML BTL PO ONE (20:30)
[2021-12-13] MEDS: DOCUSATE SODIUM 100 MG CAP PO SCH (20:59)
[2021-12-13] MEDS: SODIUM CHLORIDE 0.9% 1000ML 1,000 ML IV SCH (20:59)
[2021-12-13] MEDS: INSULIN LISPRO 100 UNIT/1 ML 3ML VIAL SQ SCH (21:00)
[2021-12-13] MEDS: SIMVASTATIN 20 MG TAB PO SCH (21:01)
[2021-12-14] VITALS (8 sets, daily range): BP systolic 118–143; BP diastolic 75–89
[2021-12-14] MEDS: LEVOTHYROXINE SODIUM 25 MCG TABLET PO SCH ×2 (06:00→06:12)
[2021-12-14 06:29] LABS: BASOPHILS % 0.4 % (0.0-1.0); EOSINOPHILS # (AUTO) 0.1 (0.0-0.4); EOSINOPHILS % 1.4 % (0.0-6.0); HEMATOCRIT 31.8 % (34.2-44.1); HEMOGLOBIN 10.4 g/dL (12.0-16.0); LYMPHOCYTES # (AUTO) 3.2 (1.0-3.2); MEAN CORPUSCULAR HEMOGLOBIN 32.7 pg (28-32); MEAN CORPUSCULAR HGB CONC 32.7 g/dL (31-35); MONOCYTES # (AUTO) 0.5 (0.2-0.8); MONOCYTES % 5.4 % (4.4-11.3); NEUTROPHILS # (AUTO) 4.6 (2.1-6.9); NEUTROPHILS % 54.3 % (38.7-80.0); PLATELET COUNT 194 x10e3/uL (140-360); RED BLOOD COUNT 3.18 x10e6/uL (3.6-5.1); RED CELL DISTRIBUTION WIDTH 12.2 % (11.7-14.4)
[2021-12-14 06:55] LABS: ALBUMIN 3.4 g/dL (3.5-5.0); ANION GAP 12.5 mmol/L (8-16); CALCIUM 8.2 mg/dL (8.4-10.2); CREATININE, SERUM 1.65 mg/dL (0.57-1.11); POTASSIUM 4.5 mmol/L (3.5-5.1)
[2021-12-14 06:58] LABS: CHOL/HDL RATIO 2.8 (3.0-3.6); MAGNESIUM 1.5 MG/DL (1.3-2.1); PHOSPHORUS 3.8 MG/DL (2.3-4.7)
[2021-12-14 07:19] LABS: THYROID STIMULATING HORMONE 0.963 uIU/mL (0.350-4.940)
[2021-12-14] MEDS: INSULIN LISPRO 100 UNIT/1 ML 3ML VIAL SQ SCH ×4 (07:30→20:51)
[2021-12-14] MEDS: LACTOBACILLUS ACIDOPHILUS CAPSULE PO SCH (08:34)
[2021-12-14] MEDS: DOCUSATE SODIUM 100 MG CAP PO SCH ×2 (08:35→16:51)
[2021-12-14] MEDS: FAMOTIDINE 20 MG/2 ML VIAL IV SCH (08:35)
[2021-12-14] MEDS: IRBESARTAN 150 MG TAB PO SCH (08:42)
[2021-12-14] MEDS: SODIUM CHLORIDE 0.9% 1000ML 1,000 ML IV SCH ×2 (08:43→16:51)
[2021-12-14] MEDS ORDERED: FAMOTIDINE 20 MG/2 ML VIAL IV SCH (09:00)
[2021-12-14] MEDS: SIMVASTATIN 20 MG TAB PO SCH (20:43)
[2021-12-15] VITALS (8 sets, daily range): BP systolic 125–157; BP diastolic 69–88
[2021-12-15] MEDS: LEVOTHYROXINE SODIUM 25 MCG TABLET PO SCH (05:09)
[2021-12-15 05:42] LABS: ANION GAP 12.1 mmol/L (8-16); CALCIUM 8.4 mg/dL (8.4-10.2); CREATININE, SERUM 1.61 mg/dL (0.57-1.11); POTASSIUM 4.1 mmol/L (3.5-5.1)
[2021-12-15] MEDS: INSULIN LISPRO 100 UNIT/1 ML 3ML VIAL SQ SCH ×4 (07:30→20:21)
[2021-12-15] MEDS: IRBESARTAN 150 MG TAB PO SCH (08:51)
[2021-12-15] MEDS: FAMOTIDINE 20 MG/2 ML VIAL IV SCH (08:51)
[2021-12-15] MEDS: DOCUSATE SODIUM 100 MG CAP PO SCH ×2 (08:52→16:37)
[2021-12-15] MEDS: LACTOBACILLUS ACIDOPHILUS CAPSULE PO SCH (08:52)
[2021-12-15] MEDS ORDERED: SODIUM CHLORIDE 0.9% 250ML 250 ML ONE (14:45)
[2021-12-15] MEDS: SODIUM CHLORIDE 0.9% 1000ML 1,000 ML IV SCH (16:56)
[2021-12-15] MEDS: SIMVASTATIN 20 MG TAB PO SCH (20:18)
[2021-12-16] VITALS (7 sets, daily range): BP systolic 140–166; BP diastolic 80–95
[2021-12-16] MEDS: LEVOTHYROXINE SODIUM 25 MCG TABLET PO SCH (05:23)
[2021-12-16] MEDS: SODIUM CHLORIDE 0.9% 1000ML 1,000 ML IV SCH (05:39)
[2021-12-16 07:06] LABS: BASOPHILS % 0.4 % (0.0-1.0); EOSINOPHILS # (AUTO) 0.1 (0.0-0.4); EOSINOPHILS % 1.1 % (0.0-6.0); HEMATOCRIT 31.4 % (34.2-44.1); HEMOGLOBIN 10.5 g/dL (12.0-16.0); LYMPHOCYTES # (AUTO) 2.5 (1.0-3.2); LYMPHOCYTES % 30.5 % (18.0-39.1); MEAN CORPUSCULAR HEMOGLOBIN 32.2 pg (28-32); MEAN CORPUSCULAR HGB CONC 33.4 g/dL (31-35); MEAN CORPUSCULAR VOLUME 96.3 fL (81-99); MONOCYTES # (AUTO) 0.4 (0.2-0.8); NEUTROPHILS # (AUTO) 5.1 (2.1-6.9); NEUTROPHILS % 62.6 % (38.7-80.0); PLATELET COUNT 181 x10e3/uL (140-360); RED BLOOD COUNT 3.26 x10e6/uL (3.6-5.1); RED CELL DISTRIBUTION WIDTH 11.9 % (11.7-14.4)
[2021-12-16] MEDS: INSULIN LISPRO 100 UNIT/1 ML 3ML VIAL SQ SCH ×2 (07:30→11:30)
[2021-12-16 07:38] LABS: ANION GAP 15.2 mmol/L (8-16); CALCIUM 8.4 mg/dL (8.4-10.2); CREATININE, SERUM 1.4 mg/dL (0.57-1.11); POTASSIUM 4.2 mmol/L (3.5-5.1)
[2021-12-16] MEDS: IRBESARTAN 150 MG TAB PO SCH (10:10)
[2021-12-16] MEDS: LACTOBACILLUS ACIDOPHILUS CAPSULE PO SCH (10:11)
[2021-12-16] MEDS: DOCUSATE SODIUM 100 MG CAP PO SCH (10:11)
[2021-12-16] MEDS ORDERED: ONDANSETRON HCL 4 MG ORAL DISINTEGRATING TAB PO PRN (14:30)
[2021-12-16] MEDS ORDERED: ONDANSETRON ODT4 MG PO (16:34)
[2021-12-16] MEDS ORDERED: FAMOTIDINE20 MG PO (16:34)
[2021-12-16] MEDS ORDERED: ACETAMINOPHEN325 M1 PO (16:34)
[2021-12-16] MEDS ORDERED: Docusate Sodium PO (16:34)
[2021-12-17] MEDS ORDERED: FAMOTIDINE 20 MG TAB PO SCH (06:00)
[2021-12-18] MEDS ORDERED: METFORMIN HCL500 MG PO (11:34)
== END 2021-12-16 17:45 | disposition home or self-care (01) | DRG 690 ==
LOC: ER 13:37 → ERHOLD 16:34 → MED/SURG2 18:35
PROVIDERS: ADMIT Internal Medicine; ATTEND Internal Medicine
DX: N10 Acute pyelonephritis (principal); Z16.12 Extended spectrum beta lactamase (ESBL) resistance; N17.9 Acute kidney failure, unspecified; B96.20 Unspecified Escherichia coli [E. coli] as the cause of diseases classified elsewhere; N18.9 Chronic kidney disease, unspecified; Z90.5 Acquired absence of kidney; M32.9 Systemic lupus erythematosus, unspecified; E11.22 Type 2 diabetes mellitus with diabetic chronic kidney disease; E11.40 Type 2 diabetes mellitus with diabetic neuropathy, unspecified; Z85.528 Personal history of other malignant neoplasm of kidney; Z79.4 Long term (current) use of insulin; I12.9 Hypertensive chronic kidney disease with stage 1 through stage 4 chronic kidney disease, or unspecified chronic kidney disease; D64.9 Anemia, unspecified; E87.5 Hyperkalemia; Z20.822 Contact with and (suspected) exposure to COVID-19
CPT/HCPCS: 36415; 74176; 76770; 80048; 80053; 80061; 81001; 82948; 83036; 83605; 83735; 84100; 84443; 85025; 85610; 85730; 87040; 87086; 87186; 94799; 99284; J2185; J2405; J2543; J7030; J7050

== ENCOUNTER 2022-01-07 18:00 | Inpatient (IN) | payer MEDICARE ==
[~2022-01-07] VITALS: Ht 170.2 cm; Wt 86.4 kg
[~2022-01-07 18:00] MED LIST changes: +ACETAMINOPHEN325 M1 PO; +Docusate Sodium PO; +FAMOTIDINE20 MG PO; +IRBESARTAN300 MG PO; +METFORMIN HCL500 M1 PO; +METFORMIN HCL500 MG PO; +ONDANSETRON ODT4 MG PO; +PROBIOTIC & AC1 EACH PO; +SIMVASTATIN5 MG PO; +SPIRONOLACTONE25 MG PO; +SYNTHROID25 MCG PO; +TRADJENTA5 MG PO; +vitamin k2 PO
[2022-01-07 18:42] LABS: BASOPHILS % 0.4 % (0.0-1.0); EOSINOPHILS # (AUTO) 0.2 (0.0-0.4); EOSINOPHILS % 1.7 % (0.0-6.0); HEMATOCRIT 32.9 % (34.2-44.1); HEMOGLOBIN 10.8 g/dL (12.0-16.0); LYMPHOCYTES # (AUTO) 3.8 (1.0-3.2); LYMPHOCYTES % 39.5 % (18.0-39.1); MEAN CORPUSCULAR HEMOGLOBIN 31.6 pg (28-32); MEAN CORPUSCULAR HGB CONC 32.8 g/dL (31-35); MEAN CORPUSCULAR VOLUME 96.2 fL (81-99); MONOCYTES # (AUTO) 0.5 (0.2-0.8); MONOCYTES % 5.2 % (4.4-11.3); NEUTROPHILS # (AUTO) 5.1 (2.1-6.9); PLATELET COUNT 230 x10e3/uL (140-360); RED BLOOD COUNT 3.42 x10e6/uL (3.6-5.1); RED CELL DISTRIBUTION WIDTH 11.6 % (11.7-14.4)
[2022-01-07 18:55] LABS: ANION GAP 15.3 mmol/L (8-16); CREATININE, SERUM 1.82 mg/dL (0.57-1.11)
[2022-01-07 18:59] LABS: POTASSIUM 5.3 mmol/L (3.5-5.1)
[2022-01-07] MEDS ORDERED: SOD POLYSTYRENE SULFONATE SUSP 15 GM/60 ML BTL PO ONE (19:30)
[2022-01-07] MEDS ORDERED: ONDANSETRON HCL INJ 2MG/ML 2ML 2 MG/ML VIAL IV PRN (19:30)
[2022-01-08] MEDS ORDERED: IOPAMIDOL 610MG/1ML 300 MG/ML VIAL IV ONE (07:29)
[2022-01-08] MEDS ORDERED: B&O 60MG R/S 60 MG SUPP PR ONE (07:29)
[2022-01-08 07:30] LABS: ANION GAP 13.3 mmol/L (8-16); CALCIUM 8.6 mg/dL (8.4-10.2); CREATININE, SERUM 1.93 mg/dL (0.57-1.11); POTASSIUM 5.3 mmol/L (3.5-5.1)
[2022-01-08 07:46] LABS: BASOPHILS % 0.4 % (0.0-1.0); EOSINOPHILS # (AUTO) 0.1 (0.0-0.4); EOSINOPHILS % 1.7 % (0.0-6.0); HEMATOCRIT 31.5 % (34.2-44.1); HEMOGLOBIN 10.3 g/dL (12.0-16.0); LYMPHOCYTES # (AUTO) 3.2 (1.0-3.2); MEAN CORPUSCULAR HEMOGLOBIN 32.1 pg (28-32); MEAN CORPUSCULAR HGB CONC 32.7 g/dL (31-35); MEAN CORPUSCULAR VOLUME 98.1 fL (81-99); MONOCYTES # (AUTO) 0.5 (0.2-0.8); MONOCYTES % 5.9 % (4.4-11.3); NEUTROPHILS # (AUTO) 4.3 (2.1-6.9); NEUTROPHILS % 52.9 % (38.7-80.0); PLATELET COUNT 197 x10e3/uL (140-360); RED BLOOD COUNT 3.21 x10e6/uL (3.6-5.1); RED CELL DISTRIBUTION WIDTH 11.7 % (11.7-14.4)
[2022-01-08] MEDS ORDERED: MIDAZOLAM HCL 2 MG/2 ML VIAL ONE (08:25)
[2022-01-08] MEDS ORDERED: ATROPINE SULFATE 1 MG/ML VIAL ONE (08:26)
[2022-01-08] MEDS ORDERED: SEVOFLURANE INHAL SOLN 250 ML PEN BTL ONE (08:26)
[2022-01-08] MEDS ORDERED: PROPOFOL IV EMULSION 10 MG/ML 20 ML VIAL ONE (08:26)
[2022-01-08] MEDS ORDERED: LIDOCAINE HCL 2% LOCAL INJ 5 ML SDV VIAL INJ ONE (08:26)
[2022-01-08] MEDS ORDERED: ONDANSETRON HCL INJ 2MG/ML 2ML 2 MG/ML VIAL ONE (08:26)
[2022-01-08] MEDS ORDERED: EPHEDRINE SULFATE INJ 50 MG/ML VIAL ONE (08:26)
[2022-01-08] MEDS ORDERED: POVIDONE IODINE 0.05% 0.05 % ML PO ONE (08:26)
[2022-01-08] MEDS ORDERED: GENTAMICIN 80MG/NS 100 ML 200 ML IV ONE (09:28)
[2022-01-08] MEDS ORDERED: PIPERACILLIN/TAZOBACTAM 3.375 GM VIAL ONE (09:29)
[2022-01-08 11:30] VITALS: BP 103/71
[2022-01-08 12:04] VITALS: BP 107/71
[2022-01-08] MEDS ORDERED: SOD POLYSTYRENE SULFONATE SUSP 15 GM/60 ML BTL PO ONE (13:15)
[2022-01-08] MEDS ORDERED: ELDERBERRY PO (14:14)
[2022-01-08] MEDS ORDERED: CRANBERRY PO (14:14)
[2022-01-08] MEDS ORDERED: GLIMEPIRIDE2 MG PO ×2 (14:14)
[2022-01-08] MEDS ORDERED: B12 ACTIVE1000 MCG PO (14:14)
[2022-01-08] MEDS ORDERED: NATURE MADE BLADIN (14:14)
[2022-01-08] MEDS ORDERED: PROBIOTIC 10 PO (14:14)
[2022-01-08] MEDS ORDERED: VITAMIN E400 UNI1 PO (14:14)
[2022-01-08] MEDS ORDERED: CHOLECALCIFEROL PO (14:14)
[2022-01-08] MEDS ORDERED: FERROUS SULFATE PO (14:14)
[2022-01-08] MEDS ORDERED: SYNTHROID125 MCG PO (14:14)
[2022-01-08] MEDS ORDERED: METFORMIN HCL500 M2 PO (14:14)
[2022-01-08] MEDS ORDERED: [UNRECOGNIZED DRUG - OTHER] (14:14)
[2022-01-08] MEDS: SODIUM CHLORIDE 0.9% 1000ML 1,000 ML IV SCH ×2 (14:15→23:11)
[2022-01-08 15:43] VITALS: BP 108/72
[2022-01-08 20:49] VITALS: BP 106/67
[2022-01-09] VITALS (8 sets, daily range): BP systolic 108–132; BP diastolic 64–70
[2022-01-09 05:11] LABS: BASOPHILS % 0.5 % (0.0-1.0); EOSINOPHILS # (AUTO) 0.2 (0.0-0.4); EOSINOPHILS % 1.9 % (0.0-6.0); HEMATOCRIT 29.5 % (34.2-44.1); HEMOGLOBIN 9.8 g/dL (12.0-16.0); LYMPHOCYTES # (AUTO) 2.7 (1.0-3.2); LYMPHOCYTES % 35.3 % (18.0-39.1); MEAN CORPUSCULAR HEMOGLOBIN 32.2 pg (28-32); MEAN CORPUSCULAR HGB CONC 33.2 g/dL (31-35); MONOCYTES # (AUTO) 0.4 (0.2-0.8); MONOCYTES % 5.7 % (4.4-11.3); NEUTROPHILS # (AUTO) 4.4 (2.1-6.9); NEUTROPHILS % 56.3 % (38.7-80.0); PLATELET COUNT 168 x10e3/uL (140-360); RED BLOOD COUNT 3.04 x10e6/uL (3.6-5.1); RED CELL DISTRIBUTION WIDTH 11.9 % (11.7-14.4)
[2022-01-09 05:26] LABS: ANION GAP 13.5 mmol/L (8-16); CALCIUM 7.9 mg/dL (8.4-10.2); CREATININE, SERUM 1.76 mg/dL (0.57-1.11); POTASSIUM 5.5 mmol/L (3.5-5.1)
[2022-01-09] MEDS ORDERED: SOD POLYSTYRENE SULFONATE SUSP 15 GM/60 ML BTL PO ONE (09:00)
== END 2022-01-09 14:15 | disposition home or self-care (01) | DRG 694 ==
LOC: ER 18:04 → UNDOADMIN 19:19 → ERHOLD 19:19 → OR 01-08 08:13 → PACU V 01-08 10:36 → MED/SURG 01-08 11:31
PROVIDERS: ADMIT Internal Medicine; ATTEND Internal Medicine
PROC: 0TF48ZZ Fragmentation in Left Kidney Pelvis, Via Natural or Artificial Opening Endoscopic (ICD-10-PCS; principal; 2022-01-07)
PROC: BT141ZZ Fluoroscopy of Kidneys, Ureters and Bladder using Low Osmolar Contrast (ICD-10-PCS; 2022-01-07)
PROC: 0T7D8ZZ Dilation of Urethra, Via Natural or Artificial Opening Endoscopic (ICD-10-PCS; 2022-01-07)
PROC: 0T788ZZ Dilation of Bilateral Ureters, Via Natural or Artificial Opening Endoscopic (ICD-10-PCS; 2022-01-07)
DX: N20.0 Calculus of kidney (principal); N17.9 Acute kidney failure, unspecified; E11.22 Type 2 diabetes mellitus with diabetic chronic kidney disease; I12.9 Hypertensive chronic kidney disease with stage 1 through stage 4 chronic kidney disease, or unspecified chronic kidney disease; N18.32 Chronic kidney disease, stage 3b; E87.5 Hyperkalemia; E03.9 Hypothyroidism, unspecified; Z86.16 Personal history of COVID-19; M32.9 Systemic lupus erythematosus, unspecified; E11.40 Type 2 diabetes mellitus with diabetic neuropathy, unspecified; Z79.899 Other long term (current) drug therapy; Z85.528 Personal history of other malignant neoplasm of kidney; Z85.3 Personal history of malignant neoplasm of breast; Z90.5 Acquired absence of kidney; N35.92 Unspecified urethral stricture, female; N81.6 Rectocele; N81.10 Cystocele, unspecified; N95.2 Postmenopausal atrophic vaginitis; Z87.891 Personal history of nicotine dependence; N39.41 Urge incontinence; E78.5 Hyperlipidemia, unspecified; E11.69 Type 2 diabetes mellitus with other specified complication; Z20.822 Contact with and (suspected) exposure to COVID-19
CPT/HCPCS: 0223U; 36415; 80048; 82948; 84132; 84484; 85025; 93005; 99284; J0461; J1580; J2001; J2250; J2405; J2543; J7030

== ENCOUNTER → 2022-10-27 | Outpatient (CLI) | payer MEDICARE ==
[~2022-10-27] MED LIST changes: +B12 ACTIVE1000 MCG PO; +CHOLECALCIFEROL PO; +CRANBERRY PO; +ELDERBERRY PO; +FERROUS SULFATE PO; +METFORMIN HCL500 M2 PO; +NATURE MADE BLADIN; +PROBIOTIC 10 PO; +SYNTHROID125 MCG PO; +VITAMIN E400 UNI1 PO; +[UNRECOGNIZED DRUG - OTHER]
== END ==
LOC: US 06:19
PROVIDERS: ATTEND Urology
DX: C64.1 Malignant neoplasm of right kidney, except renal pelvis (principal); N20.0 Calculus of kidney; N28.1 Cyst of kidney, acquired
CPT/HCPCS: 71046; 74018; 76770

== ENCOUNTER 2024-03-13 13:28 | Emergency (ER) | payer MEDICARE ==
[~2024-03-13] VITALS: Ht 170.2 cm; Wt 86.2 kg
[~2024-03-13 13:28] MED LIST changes: +ALLOPURINOL100 MG PO; +FIBER TABS625 MG PO; +POTASSIUM CITR10 MEQ PO; +ULTRAM 50MG50 MG PO
[2024-03-13 13:37] VITALS: TEMP 97.9
[2024-03-13] MEDS ORDERED: SODIUM CHLORIDE FLUSH 10 ML SYR IV PRN (14:00)
[2024-03-13 14:04] LABS: BASOPHILS # (AUTO) 0.1 (0.0-0.1); BASOPHILS % 0.6 % (0.0-1.0); EOSINOPHILS # (AUTO) 0.1 (0.0-0.4); EOSINOPHILS % 0.6 % (0.0-6.0); HEMATOCRIT 33.2 % (34.2-44.1); HEMOGLOBIN 10.9 g/dL (12.0-16.0); LYMPHOCYTES # (AUTO) 1.5 (1.0-3.2); LYMPHOCYTES % 17.1 % (18.0-39.1); MEAN CORPUSCULAR HEMOGLOBIN 32.8 pg (28-32); MEAN CORPUSCULAR HGB CONC 32.8 g/dL (31-35); MONOCYTES # (AUTO) 0.3 (0.2-0.8); MONOCYTES % 3.5 % (4.4-11.3); NEUTROPHILS # (AUTO) 6.8 (2.1-6.9); NEUTROPHILS % 77.9 % (38.7-80.0); PLATELET COUNT 216 x10e3/uL (140-360); RED BLOOD COUNT 3.32 x10e6/uL (3.6-5.1); RED CELL DISTRIBUTION WIDTH 12.4 % (11.7-14.4); WHITE BLOOD COUNT 8.66 x10e3/uL (4.8-10.8)
[2024-03-13 14:09] LABS: INR 1.03
[2024-03-13 14:10] LABS: PARTIAL THROMBOPLASTIN TIME 36.5 seconds (23.8-35.5)
[2024-03-13 14:19] LABS: ALANINE AMINOTRANSFERASE 13 IU/L (0-55); ALBUMIN 4.2 g/dL (3.5-5.0); ALBUMIN/GLOBULIN RATIO 1.1 (0.8-2.0); ALKALINE PHOSPHATASE 85 IU/L (40-150); ANION GAP 17.4 mmol/L (8-16); BILIRUBIN,TOTAL 0.5 mg/dL (0.2-1.2); BLOOD UREA NITROGEN 41 mg/dL (7-26); BUN/CREATININE RATIO 16 (6-25); CALCIUM 9.6 mg/dL (8.4-10.2); CARBON DIOXIDE 21 mmol/L (22-29); CHLORIDE 105 mmol/L (98-107); CREATININE, SERUM 2.63 mg/dL (0.57-1.11); EST GLOMERULAR FILTRATION RATE 19 ML/MIN (>=60); GLUCOSE 178 mg/dL (74-118); POTASSIUM 4.4 mmol/L (3.5-5.1); SODIUM 139 mmol/L (136-145); TOTAL PROTEIN 7.9 g/dL (6.5-8.1)
[2024-03-13 14:26] LABS: TROPONIN I < 0.001 ng/mL (0-0.300)
[2024-03-13] MEDS: MECLIZINE HCL 12.5 MG TAB PO ONE (14:29)
[2024-03-13 16:11] VITALS: PULSE 68; RESP 18; O2SAT 100
[2024-03-13 16:40] LABS: BILIRUBIN,URINE NEGATIVE (NEGATIVE); CLARITY,URINE SL CLOUDY (CLEAR); COLOR,URINE YELLOW (YELLOW); GLUCOSE, URINE NEGATIVE (NEGATIVE); KETONES,URINE NEGATIVE (NEGATIVE); LEUKOCYTE ESTERASE ,URINE NEGATIVE (NEGATIVE); NITRITE,URINE NEGATIVE (NEGATIVE); PH,URINE 6.5 (5 - 7); PROTEIN,URINE DIPSTICK >=300 (NEGATIVE); URINE UROBILINOGEN 0.2 mg/dL (0.2 - 1)
[2024-03-13 16:55] LABS: BACTERIA,URINE RARE /HPF; RENAL EPITHELIAL CELLS,URINE RARE
[2024-03-13] MEDS ORDERED: MECLIZINE HCL25 MG PO (17:04)
== END 2024-03-13 17:13 | disposition home or self-care (01) ==
LOC: ER 14:37
DX: R42 Dizziness and giddiness (principal); R11.2 Nausea with vomiting, unspecified; E11.65 Type 2 diabetes mellitus with hyperglycemia; I10 Essential (primary) hypertension; E78.5 Hyperlipidemia, unspecified; E07.9 Disorder of thyroid, unspecified; R94.31 Abnormal electrocardiogram [ECG] [EKG]; Z79.60 Long term (current) use of unspecified immunomodulators and immunosuppressants; Z85.3 Personal history of malignant neoplasm of breast; Z85.528 Personal history of other malignant neoplasm of kidney
CPT/HCPCS: 36415; 70450; 71045; 80053; 81001; 82948; 83880; 84484; 85025; 85610; 85730; 93005; 94760; 99284; J8597

== ENCOUNTER 2024-07-22 08:57 | Emergency (ER) | payer MEDICARE ==
[~2024-07-22] VITALS: Ht 170.2 cm; Wt 86.2 kg
[~2024-07-22 08:57] MED LIST changes: +MECLIZINE HCL25 MG PO
[2024-07-22 09:00] VITALS: TEMP 98.1
[2024-07-22 09:51] LABS: BASOPHILS % 0.4 % (0.0-1.0); EOSINOPHILS # (AUTO) 0.1 (0.0-0.4); HEMATOCRIT 29.8 % (34.2-44.1); HEMOGLOBIN 10.1 g/dL (12.0-16.0); LYMPHOCYTES # (AUTO) 2.2 (1.0-3.2); LYMPHOCYTES % 25.9 % (18.0-39.1); MEAN CORPUSCULAR HEMOGLOBIN 32.5 pg (28-32); MEAN CORPUSCULAR HGB CONC 33.9 g/dL (31-35); MEAN CORPUSCULAR VOLUME 95.8 fL (81-99); MONOCYTES # (AUTO) 0.4 (0.2-0.8); MONOCYTES % 4.6 % (4.4-11.3); NEUTROPHILS # (AUTO) 5.7 (2.1-6.9); NEUTROPHILS % 67.9 % (38.7-80.0); PLATELET COUNT 183 x10e3/uL (140-360); RED BLOOD COUNT 3.11 x10e6/uL (3.6-5.1); RED CELL DISTRIBUTION WIDTH 12.4 % (11.7-14.4); WHITE BLOOD COUNT 8.41 x10e3/uL (4.8-10.8)
[2024-07-22 10:02] LABS: ALBUMIN 3.8 g/dL (3.5-5.0); ALBUMIN/GLOBULIN RATIO 1.2 (0.8-2.0); ANION GAP 16.5 mmol/L (8-16); BILIRUBIN,TOTAL 0.4 mg/dL (0.2-1.2); CALCIUM 9.1 mg/dL (8.4-10.2); CREATININE, SERUM 2.52 mg/dL (0.57-1.11); POTASSIUM 3.5 mmol/L (3.5-5.1); TOTAL PROTEIN 7.1 g/dL (6.5-8.1)
[2024-07-22 10:44] LABS: BILIRUBIN,URINE NEGATIVE (NEGATIVE); CLARITY,URINE CLEAR (CLEAR); COLOR,URINE YELLOW (YELLOW); GLUCOSE, URINE NEGATIVE (NEGATIVE); KETONES,URINE NEGATIVE (NEGATIVE); LEUKOCYTE ESTERASE ,URINE NEGATIVE (NEGATIVE); NITRITE,URINE NEGATIVE (NEGATIVE); PH,URINE 6 (5 - 7); PROTEIN,URINE DIPSTICK >=300 (NEGATIVE); URINE UROBILINOGEN 0.2 mg/dL (0.2 - 1)
[2024-07-22 10:54] LABS: BACTERIA,URINE RARE /HPF; EPITHELIAL CELLS,URINE FEW /LPF; WBC,URINE (MAN) 0-5 /HPF (0-5)
[2024-07-22 11:32] VITALS: PULSE 66; RESP 18; O2SAT 100
== END 2024-07-22 11:59 | disposition home or self-care (01) ==
LOC: ER 09:17
DX: E11.65 Type 2 diabetes mellitus with hyperglycemia (principal); R42 Dizziness and giddiness; I10 Essential (primary) hypertension; E78.5 Hyperlipidemia, unspecified; E07.9 Disorder of thyroid, unspecified; R94.31 Abnormal electrocardiogram [ECG] [EKG]; Z85.3 Personal history of malignant neoplasm of breast; Z85.528 Personal history of other malignant neoplasm of kidney; Z87.442 Personal history of urinary calculi
CPT/HCPCS: 36415; 70450; 71045; 80053; 81001; 84484; 85025; 93005; 99284